=== PATIENT | male | born 1990 | race Caucasian/White ===

== ENCOUNTER 2019-07-07 10:54 | Emergency (ER) | payer MEDICAID, OTHER | END 2019-07-07 11:27 | disposition home or self-care (01) | LOC: NAV ERS 10:54 | DX: M25.511 Pain in right shoulder (principal); F41.9 Anxiety disorder, unspecified; F32.9 Major depressive disorder, single episode, unspecified; F17.200 Nicotine dependence, unspecified, uncomplicated | CPT/HCPCS: 99281 ==